=== PATIENT | female | born 1975 | race Hispanic/Latino ===

== ENCOUNTER 2017-06-26 11:26 | Emergency (ER) | payer SELFPAY ==
[2017-06-26 12:07] LABS: #Eosinphils 0.1 thou/uL (0.0-0.7); #Lymphocytes 1.8 thou/uL (1.20-3.40); #Monocytes 0.6 thou/uL (0.11-0.59); #Neutrophils 6.1 thou/uL (1.40-6.50); %Basophils 0.2 % (0.0-1.0); %Eosinophils 0.8 % (0.0-10.0); %Lymphocytes 21.4 % (21.0-51.0); %Monocytes 6.9 % (0.0-10.0); %Neutrophils 70.7 % (42.0-75.0); Hemoglobin 8.6 g/dL (12.0-16.0); Mean Corpuscular HGB CONC 32.6 g/dL (32.0-36.0); Mean Corpuscular Hemoglobin 25.9 pg (27.0-31.0); Mean Corpuscular Volume 79.5 fl (81.0-99.0); Mean Platelet Volume 8.2 fL (7.4-10.4); Platelet Count 271 thou/uL (130-400); RBC Distribution Width 15.1 % (11.5-14.5); Red Blood Cell (RBC) Count 3.31 mill/uL (4.20-5.40); White Blood Cell (WBC) Count 8.6 thou/uL (4.8-10.8)
[2017-06-26 12:18] LABS: BHCG - Serum Negative (NEGATIVE); Pregs Control Background? CLEAR/WHITE (CLR/WHITE); Pregs Control Bar Appear? YES (CONTROL BAR)
[2017-06-26 13:21] LABS: ALT (SGPT) 8 U/L (8-55); AST (SGOT) 12 U/L (5-34); Albumin 3.8 g/dL (3.5-5.0); Alkaline Phosphatase 59 U/L (40-150); Anion Gap 11 mmol/L (10-20); BUN (Urea Nitrogen) 11 mg/dL (7.0-18.7); Bilirubin, Total Less than 0.2 mg/dL (0.2-1.2); Calc. Creatinine Clearance 0 mL/min (70-130); Calcium 8.8 mg/dL (7.8-10.44); Carbon Dioxide 24 mmol/L (22-29); Chloride 105 mmol/L (98-107); Estimated GFR-MDRD Greater than 90; Globulin 3.4 g/dL (2.4-3.5); Glucose 141 mg/dL (70-105); Potassium 3.7 mmol/L (3.5-5.1); Protein, Total 7.2 g/dL (6.0-8.3); Sodium 136 mmol/L (136-145)
[2017-06-28 20:18] LABS: Chlamydia by PCR Not Detected (NotDetected); GC by PCR Not Detected (NotDetected)
== END 2017-06-26 14:45 | disposition home or self-care (01) ==
LOC: ERS 11:26
DX: N93.8 Other specified abnormal uterine and vaginal bleeding (principal); Z79.899 Other long term (current) drug therapy
CPT/HCPCS: 36415; 80053; 84703; 85025; 86850; 86900; 86901; 87480; 87491; 87510; 87591; 87660; 99284

== ENCOUNTER 2017-10-09 15:15 | Inpatient (IN) | payer OTHER ==
[2017-10-16 14:26] VITALS: BMI 32.5
[2017-10-19] MEDS ORDERED: Bupivacaine HCl 0.5%/Epinephrine 1:200,000/PF 30 ml Vial ONE (11:57)
[2017-10-19] MEDS ORDERED: Famotidine 20 MG TAB ONE (12:00)
[2017-10-19] MEDS ORDERED: Gabapentin 300 MG CAP ONE (12:00)
[2017-10-19] MEDS ORDERED: CeleCOXIB 100 MG CAP ONE (12:00)
[2017-10-19] MEDS ORDERED: CEFAZOLIN/Water 2 GM/20 ML SYRINGE ONE (12:00)
[2017-10-19] MEDS ORDERED: Famotidine/PF 20 mg/2ml Vial ONE (12:01)
[2017-10-19] MEDS ORDERED: HYDROmorphone 0.5 MG/0.5 ML SYRINGE ONE (12:04)
[2017-10-19] MEDS ORDERED: Fentanyl 100 MCG/2 ML VIAL ONE ×2 (12:04→14:51)
[2017-10-19] MEDS ORDERED: Benzocaine 20% Spray 60 ML CAN ONE (12:09)
[2017-10-19] MEDS ORDERED: Midazolam HCl 2 mg/2 ml Vial ONE (12:10)
[2017-10-19] MEDS ORDERED: HYDROcodone/Acetaminophen 5/325 mg Tablet PO PRN (14:12)
[2017-10-19] MEDS ORDERED: Ondansetron HCl/PF 4 MG/2 ML Vial IVP PRN (14:12)
[2017-10-19] MEDS ORDERED: Simethicone Chewable 80 MG TAB PO PRN (14:12)
[2017-10-19] MEDS ORDERED: Promethazine HCl 25 MG/ML VIAL IM PRN (14:12)
[2017-10-19] MEDS ORDERED: traMADol HCl 50 MG TAB PO PRN (14:12)
[2017-10-19] MEDS ORDERED: Bisacodyl 10 MG SUPP PR PRN (14:12)
[2017-10-19] MEDS ORDERED: diphenhydrAMINE 25 MG CAP PO PRN (14:12)
[2017-10-19] MEDS ORDERED: Ropivacaine 0.2% 550 ML 750 ML NERVE BLCK SCH (14:30)
[2017-10-19] MEDS ORDERED: Ropivacaine HCl/PF 750 ML in Premix Bag 1 BAG NERVE BLCK SCH (14:45)
[2017-10-19] MEDS ORDERED: Ondansetron HCl/PF 4 MG/2 ML Vial ONE (14:52)
[2017-10-19] MEDS ORDERED: Glycopyrrolate 0.2 MG/ML 5 ML SYRINGE ONE (14:52)
[2017-10-19] MEDS ORDERED: Metoclopramide HCl 10 MG/2 ML VIAL ONE (14:52)
[2017-10-19] MEDS ORDERED: Dexamethasone 20 MG/5 ML VIAL ONE (14:52)
[2017-10-19] MEDS ORDERED: Ketorolac Tromethamine 30 MG/ML VIAL ONE (14:52)
[2017-10-19] MEDS ORDERED: PROPOFOL 200 MG/20 ML VIAL ONE (14:52)
[2017-10-19] MEDS ORDERED: Lidocaine 1% PF 5 ML VIAL ONE (14:52)
[2017-10-19] MEDS ORDERED: ePHEDrine/0.9% NaCl/PF SYRINGE 50 mg/10 ml ONE (14:52)
[2017-10-19] MEDS: Lactated Ringer's 1,000 ML IV SCH ×2 (17:13→23:26)
[2017-10-19] MEDS: Ibuprofen 800 MG TAB PO SCH (23:03)
[2017-10-20 05:27] LABS: #Lymphocytes 1.4 thou/uL (1.20-3.40); #Monocytes 0.7 thou/uL (0.11-0.59); #Neutrophils 8.2 thou/uL (1.40-6.50); %Basophils 0.1 % (0.0-1.0); %Eosinophils 0.1 % (0.0-10.0); %Lymphocytes 13.6 % (21.0-51.0); %Monocytes 6.5 % (0.0-10.0); %Neutrophils 79.6 % (42.0-75.0); Hemoglobin 9.7 g/dL (12.0-16.0); Mean Corpuscular HGB CONC 32.4 g/dL (32.0-36.0); Mean Corpuscular Hemoglobin 24.8 pg (27.0-31.0); Mean Corpuscular Volume 76.5 fL (78.0-98.0); Mean Platelet Volume 9.4 fL (7.4-10.4); Platelet Count 205 thou/uL (130-400); RBC Distribution Width 17.2 % (11.5-14.5); Red Blood Cell (RBC) Count 3.89 mill/uL (4.20-5.40); White Blood Cell (WBC) Count 10.3 thou/uL (4.8-10.8)
[2017-10-20 05:42] LABS: Anion Gap 10 mmol/L (10-20); BUN (Urea Nitrogen) 8 mg/dL (7.0-18.7); Calc. Creatinine Clearance 158 mL/min (70-130); Calcium 8.8 mg/dL (7.8-10.44); Carbon Dioxide 25 mmol/L (22-29); Chloride 106 mmol/L (98-107); Estimated GFR-MDRD Greater than 90; Glucose 117 mg/dL (70-105); Potassium 3.4 mmol/L (3.5-5.1); Sodium 138 mmol/L (136-145)
[2017-10-20] MEDS: Ibuprofen 800 MG TAB PO SCH (06:32)
[2017-10-20] MEDS: Lactated Ringer's 1,000 ML IV SCH ×2 (07:38→08:27)
[2017-10-20 08:44] VITALS: BP 134/72; TEMP 99
--- NOTE | 2017-10-20 09:19 | OP ---
PREOPERATIVE DIAGNOSES: ON-Q pain pump. SURGEON: Dolores Shipman D.O. SECURITY ASSURANCE ANALYST: Anthony Martinez D.O. ESTIMATED BLOOD LOSS: 50 mL. IV FLUIDS: 1650 mL URINE OUTPUT: 500 mL of clear urine. COMPLICATIONS: None. FINDINGS: Normal external genitalia, normal vaginal and cervical epithelium, 9 cm uterus with normal fallopian tubes and ovaries bilaterally and peritoneal identification of the ureters with . INDICATIONS FOR THE PROCEDURE: Ms. Deep Fernandes is a 41-year-old, G6, P5, who presented to clinic wi th heavy abnormal menses. The patient underwent an endometrial biopsy therapy due to continued abnormal bleeding and desired definitive surgical therapy with a hysterectomy. PROCEDURE IN DETAIL: The patient was brought to the operating room. She was placed under general an esthesia. The patient was placed in dorsal lithotomy position and appropriately prepped and draped i n sterile fashion. A single-sided speculum was placed in the vagina. the abdominal portion us ing the scalpel and the Veress needle was inserted into the peritoneal cavity noting a normal pressur e. The 12-mm trocar was then placed at this site. The peritoneal cavity was evaluated, noting the f indings as above. The patient was placed in Trendelenburg position. one on the right of the a bdomen and additional 11-mm port ____ salpingectomy was performed working distally broad ligame nt was undermined and also transected down towards the level of the uterosacral ligament and this was performed bilaterally. The right uterine vessels were further skeletonized and the right uterine ve ssels were coagulated multiple times and transected. completely circumferentially and then the uterus and cervix were delivered vaginally. The vaginal cuff the cuff was then also run . The pelvis was irrigated and cleared of all clot and debris. The abdomen was deflated down no bleeding from the cuff or any of the pedicle site. The ON-Q pump was then suture was remove d and the ON-Q pump was placed in the pelvis under direct visualization. The instruments were remove d. The robot was undocked from the patient. The patient was taken out of Trendelenburg. The abdome n was deflated and the trocars were removed fascia was closed using 0 Vicryl and the skin was c losed using 4-0 Monocryl and Dermabond. The patient was then placed back in supine position and extu bated without difficulty. Counts were correct x2. She will be transferred to the PACU In hemodynami rae stable condition.
--- NOTE | 2017-10-20 09:35 | PRG ---
DATE OF SERVICE: 10/20/2017 HISTORY OF PRESENT ILLNESS: Ms. Fernandes is a 41-year-old female, status post robotic-assisted total lap aroscopic hysterectomy with bilateral salpingectomy, postoperative day #1. SUBJECTIVE: The patient reports minimal pain. She is tolerating an oral diet without any nausea or vomiting. She is passing some flatus and has minimal to no vaginal bleeding. Her pain is controlled with oral medications. OBJECTIVE: VITAL SIGNS: Blood pressure is 134/72, pulse is 80, respiratory rate 20, oxygen saturation 98% on ro om air, temperature is 99 degrees Fahrenheit. CARDIOVASCULAR: Regular rate and rhythm. RESPIRATORY: Unlabored breathing, clear to auscultation bilaterally. ABDOMEN: Soft, mild distention as expected postoperatively. Incisions clean, dry, and intact with D ermabond. Mild tenderness to palpation and bowel sounds present in all 4 quadrants. EXTREMITIES: Negative Homans'. No edema. LABORATORY DATA: White blood cells 10.3, hemoglobin is 9.7, hematocrit is 29.7, platelet is 205, cre atinine is 0.59. Potassium was 3.4. ASSESSMENT: 1. Postoperative day #1, status post robotic-assisted total laparoscopic hysterectomy with bilateral salpingectomy. 2. Anemia. PLAN: The patient is stable for discharge home today. She is meeting all requirements for discharge . I will send home with a prescription for [place] and Motrin and to follow up in 2 weeks postop.
--- NOTE | 2017-10-20 10:33 | SS ---
ADMISSION DIAGNOSES: Postoperative pain management status post robotic assisted total laparoscopic h ysterectomy with bilateral salpingectomy and ON-Q pain placement. DISCHARGE DIAGNOSES: Postoperative pain management status post robotic assisted total laparoscopic h ysterectomy with bilateral salpingectomy and ON-Q pain placement. ADMISSION AND DISCHARGE PHYSICIAN: Dolores Shipman D.O DATE OF ADMISSION: 10/19/2017 DATE OF DISCHARGE: 10/20/2017 BRIEF HOSPITAL COURSE: The patient is a 41-year-old female status post a robotic assisted total lapa roscopic hysterectomy with bilateral salpingectomy and ON-Q pain placement. On postoperative day #1, she is doing well postoperatively and has met all requirements for discharge. The patient is ambula ting, voiding, passing flatus. She is tolerating an oral diet with no nausea or vomiting and her zulema n is controlled with oral medications. Her vitals and labs are stable. She does have a slight anemi a which is chronic due to history of abnormal uterine bleeding. MEDICATIONS: 1. Calcium 5/325, 30 tablets with 0 refills. Instructions; 1 tablet every 6 hours p.r.n. pain. 2. Motrin 800 mg 60 tablets with 0 refills. Instructions; take 1 q.8 hours p.r.n. pain. The patient's prescriptions have already been sent to the pharmacy. FOLLOWUP: Follow up in 2 weeks. DIET: General. ACTIVITY RESTRICTIONS: Pelvic rest and no heavy lifting, pushing or pulling for 6 weeks.
== END 2017-10-20 09:59 | disposition home or self-care (01) | DRG 743 ==
LOC: SURG A 10-19 11:03 → 3SE 10-19 16:50
PROVIDERS: ADMIT Obstetrics & Gynecology; ATTEND Obstetrics & Gynecology
PROC: 0UT9FZZ Resection of Uterus, Via Natural or Artificial Opening With Percutaneous Endoscopic Assistance (ICD-10-PCS; principal; 2017-10-19)
PROC: 0UT7FZZ Resection of Bilateral Fallopian Tubes, Via Natural or Artificial Opening With Percutaneous Endoscopic Assistance (ICD-10-PCS; 2017-10-19)
PROC: 8E0W4CZ Robotic Assisted Procedure of Trunk Region, Percutaneous Endoscopic Approach (ICD-10-PCS; 2017-10-19)
DX: N92.0 Excessive and frequent menstruation with regular cycle (principal); N83.291 Other ovarian cyst, right side; D25.1 Intramural leiomyoma of uterus
CPT/HCPCS: 36415; 80048; 85025; 88307; J0131; J0670; J1100; J1170; J1885; J2001; J2250; J2405; J2704; J2765; J2795; J3010; S0028

== ENCOUNTER 2017-10-16 14:02 | Outpatient (CLI) | payer OTHER ==
[2017-10-16 15:03] LABS: Hemoglobin 10.2 g/dL (12.0-16.0); Mean Corpuscular HGB CONC 32.5 g/dL (32.0-36.0); Mean Corpuscular Hemoglobin 24.6 pg (27.0-31.0); Mean Corpuscular Volume 75.6 fL (78.0-98.0); Mean Platelet Volume 9.5 fL (7.4-10.4); Platelet Count 215 thou/uL (130-400); RBC Distribution Width 16.6 % (11.5-14.5); Red Blood Cell (RBC) Count 4.15 mill/uL (4.20-5.40); White Blood Cell (WBC) Count 6.9 thou/uL (4.8-10.8)
[2017-10-16 15:29] LABS: BHCG - Serum Negative (NEGATIVE); Pregs Control Background? CLEAR/WHITE (CLR/WHITE); Pregs Control Bar Appear? YES (CONTROL BAR)
[2017-10-16 15:31] LABS: Anion Gap 12 mmol/L (10-20); BUN (Urea Nitrogen) 14 mg/dL (7.0-18.7); Calc. Creatinine Clearance 0 mL/min (70-130); Calcium 9.7 mg/dL (7.8-10.44); Carbon Dioxide 26 mmol/L (22-29); Chloride 103 mmol/L (98-107); Estimated GFR-MDRD 86; Glucose 174 mg/dL (70-105); Potassium 3.4 mmol/L (3.5-5.1); Sodium 138 mmol/L (136-145)
== END 2017-10-16 14:03 | disposition home or self-care (01) ==
LOC: LABBT 14:02
PROVIDERS: ATTEND Obstetrics & Gynecology
DX: Z01.812 Encounter for preprocedural laboratory examination (principal); N92.0 Excessive and frequent menstruation with regular cycle
CPT/HCPCS: 80048; 84703; 85027; 93005; 93010

== ENCOUNTER 2020-05-23 07:32 | Day surgery (SDC) | payer OTHER ==
[2020-05-21 12:30] VITALS: BMI 35.2
[2020-05-23] MEDS ORDERED: Scopolamine 1.5 mg/72 hour Patch ONE (08:11)
[2020-05-23] MEDS ORDERED: Midazolam HCl 2 mg/2 ml Vial ONE (08:11)
[2020-05-23] MEDS ORDERED: XYLOCAINE 2%-EPI 1:100,000 20 ML VIAL ONE (08:39)
[2020-05-23] MEDS ORDERED: Meperidine HCl/PF 25 MG/ML VIAL ONE (08:54)
[2020-05-23] MEDS ORDERED: Famotidine/PF 20 mg/2ml Vial ONE (08:54)
[2020-05-23] MEDS ORDERED: Fentanyl 100 MCG/2 ML VIAL ONE (08:54)
[2020-05-23] MEDS ORDERED: Ondansetron PF 4 MG/2 ML Vial ONE (09:18)
[2020-05-23] MEDS ORDERED: Ketorolac Tromethamine 30 MG/ML VIAL ONE (09:18)
[2020-05-23] MEDS ORDERED: Lidocaine 1% PF 5 ML VIAL ONE (09:18)
[2020-05-23] MEDS ORDERED: PROPOFOL 200 MG/20 ML VIAL ONE (09:18)
[2020-05-23] MEDS ORDERED: Dexamethasone 20 MG/5 ML VIAL ONE (09:18)
[2020-05-23] MEDS ORDERED: Metoclopramide HCl 10 MG/2 ML VIAL ONE (09:18)
[2020-05-23] MEDS ORDERED: Hydrocodone-Acetamin 15 ML UDCUP ONE (11:57)
--- NOTE | 2020-05-24 14:47 | OP ---
DATE OF PROCEDURE: 05/23/2020 PREOPERATIVE DIAGNOSES: 1. Right thyroid mass. 2. Dysphagia. POSTOPERATIVE DIAGNOSES: 1. Right thyroid mass. 2. Dysphagia. PROCEDURES PERFORMED: 1. Right thyroid lobectomy. 2. Intraoperative laryngeal nerve monitor. ESTIMATED BLOOD LOSS: 10 mL. COMPLICATIONS: None. ANESTHESIA: GETA. DESCRIPTION OF PROCEDURE: The patient was taken to the operating room, placed supine on the table. General endotracheal anesthesia was obtained by the anesthesia staff. The laryngeal endotracheal tube was then placed and the laryngeal electrodes were confirmed under indirect visualization using the GlideScope and the vocal cords were confirmed to be on the laryngeal electrodes bilaterally. The tube was secured to the midline of the upper lip. Patient was prepped and draped in standard surgical fashion. 8 mL of 1% lidocaine with 1:100,000 epinephrine was injected in the jessi-shaped area overlying the thyroid gland. An incision was made in the skin approximately 2 cm above the sternal notch and was carried through skin, subcutaneous tissue, and the platysmal layer. Subplatysmal flaps were elevated superiorly to the level of the thyroid notch and inferiorly to the clavicles. Following this, the strap muscles were identified and were in the midline and the large thyroid mass approximately 5 to 6 cm was immediately encountered immediately adjacent to the thyroid capsule. Dissection was then carried laterally. The middle thyroid vein was suture ligated and then the thyroid gland was displaced inferiorly. The superior thyroid vascular pedicle was suture ligated immediately adjacent to the thyroid gland. The gland was then allowed to be displaced medially through the incision and the right recurrent laryngeal nerve was identified coursing approximately 15 to 30 degrees from the tracheoesophageal groove. The nerve was protected and identified as the gland was freed from this area. Inferior thyroid artery was identified and was suture ligated. The inferior parathyroids were identified and were protected as well as the superior parathyroid. Following this, the attachments to the trachea were suture ligated and the right thyroid lobe along with the isthmus of the thyroid was then suture ligated and removed from the body. Frozen section analysis suggested follicular adenoma and the wound was irrigated. Hemostasis was obtained. A small piece of Surgicel was placed over the right recurrent laryngeal nerve and a drain was placed. The strap muscles were closed using a 3-0 Monocryl stitch and the platysmal layer was closed using 3-0 Monocryl stitch. A subcuticular stitch of 4-0 Monocryl was placed and Dermabond was placed in the skin. The drain was noted to be working at the end of the procedure. Intraoperative laryngeal nerve monitor, which was turned on at the beginning of the procedure and was monitored throughout the procedure, was then turned off and the patient was extubated without complications. Job ID: [id number]
== END 2020-05-23 13:30 | disposition home or self-care (01) ==
LOC: SDC 07:32
PROVIDERS: ATTEND Otolaryngology Plastic Surgery within the Head & Neck
PROC: 0GTH0ZZ Resection of Right Thyroid Gland Lobe, Open Approach (ICD-10-PCS; principal; 2020-05-23)
DX: E07.89 Other specified disorders of thyroid (principal); E11.9 Type 2 diabetes mellitus without complications; I10 Essential (primary) hypertension; Z79.4 Long term (current) use of insulin; Z79.899 Other long term (current) drug therapy
CPT/HCPCS: 36416; 88307; 88323; 88331; J1100; J1885; J2175; J2250; J2405; J2704; J2765; J3010; S0028

== ENCOUNTER 2020-06-15 14:31 | Outpatient (CLI) | payer OTHER ==
[2020-05-19 06:18] LABS: SARS-CoV-2 PCR by NAA Not Detected (NotDetected)
--- NOTE | 2020-05-21 17:10 | EKG ---
Test Reason : Blood Pressure : / mmHG Vent. Rate : 086 BPM Atrial Rate : 086 BPM P-R Int : 152 ms QRS Dur : 088 ms QT Int : 378 ms P-R-T Axes : 036 053 064 degrees QTc Int : 452 ms Normal sinus rhythm Normal ECG No previous ECGs available Confirmed by DR. Alli HOLGUIN ([id number]) on 05/21/2020 5:10:20 PM Referred By: [place] Confirmed By:DR. Alli HOLGUIN
[2020-06-15 15:39] LABS: Anion Gap 13 mmol/L (10-20); BUN (Urea Nitrogen) 14 mg/dL (7.0-18.7); Calc. Creatinine Clearance 0 mL/min (70-130); Calcium 9.1 mg/dL (7.8-10.44); Carbon Dioxide 26 mmol/L (22-29); Chloride 104 mmol/L (98-107); Glucose 136 mg/dL (70-105); Potassium 3.9 mmol/L (3.5-5.1); Sodium 139 mmol/L (136-145)
[2020-06-16 02:33] LABS: SARS-CoV-2 PCR by NAA Not Detected (NotDetected)
== END 2020-06-15 14:32 | disposition home or self-care (01) ==
LOC: LABBT 14:31
PROVIDERS: ATTEND Otolaryngology Plastic Surgery within the Head & Neck
DX: Z01.818 Encounter for other preprocedural examination (principal); Z20.822 Contact with and (suspected) exposure to COVID-19
CPT/HCPCS: 80048; 85014; 87635; 93005; 93010; U0003; U0005

== ENCOUNTER 2020-06-20 07:13 | Observation (INO) | payer OTHER ==
[2020-06-19 11:15] VITALS: BMI 35.2
[2020-06-20] MEDS ORDERED: Lidocaine 1% w/Epinephrine 1:100K 20 ML VIAL ONE (08:09)
[2020-06-20] MEDS ORDERED: Dexmedetomidine 200 MCG/2 ML VIAL ONE (08:19)
[2020-06-20] MEDS ORDERED: Fentanyl 100 MCG/2 ML VIAL ONE ×5 (08:19→15:47)
[2020-06-20] MEDS ORDERED: Calcium Chloride 1 GM/10 ML Abboject SYRINGE ONE (09:51)
[2020-06-20] MEDS ORDERED: Succinylcholine 200 MG/10 ml SYRINGE FS ONE (09:51)
[2020-06-20] MEDS ORDERED: Lidocaine 1% PF 5 ML VIAL ONE (09:51)
[2020-06-20] MEDS ORDERED: Dexamethasone 20 MG/5 ML VIAL ONE (09:51)
[2020-06-20] MEDS ORDERED: PROPOFOL 200 MG/20 ML VIAL ONE (09:51)
[2020-06-20] MEDS ORDERED: Labetalol HCl 100 MG/20 ML VIAL ONE (09:51)
[2020-06-20] MEDS ORDERED: Ondansetron PF 4 MG/2 ML Vial ONE ×2 (09:51→17:24)
[2020-06-20] MEDS ORDERED: Ondansetron HCl/PF 4 MG/2 ML Vial IVP PRN (11:20)
[2020-06-20] MEDS ORDERED: Promethazine HCl 25 MG/ML VIAL IM PRN (11:20)
[2020-06-20] MEDS ORDERED: Promethazine HCl 25 MG/ML VIAL SLOW IVP PRN (11:20)
[2020-06-20] MEDS ORDERED: Bacitracin 1 PK TOP PRN (11:46)
[2020-06-20] MEDS ORDERED: Hydrocodone-Acetamin 15 ML UDCUP PO PRN ×2 (11:48)
[2020-06-20] MEDS ORDERED: Ondansetron PF 4 MG/2 ML Vial IVP PRN (11:49)
[2020-06-20] MEDS ORDERED: Morphine 2 MG/ML VIAL SLOW IVP PRN (11:49)
--- NOTE | 2020-06-20 14:50 | OP ---
DATE OF PROCEDURE: 06/20/2020 PREOPERATIVE DIAGNOSES: 1. Thyroid papillary carcinoma. 2. Dysphagia. POSTOPERATIVE DIAGNOSES: 1. Thyroid papillary carcinoma. 2. Dysphagia. PROCEDURES PERFORMED: 1. Left thyroidectomy for completion thyroidectomy. 2. Intraoperative laryngeal nerve monitor. ESTIMATED BLOOD LOSS: 10 mL. COMPLICATIONS: None. ANESTHESIA: GETA. DESCRIPTION OF PROCEDURE: The patient was taken to operating room, placed supine on the table. General endotracheal anesthesia was obtained by the Anesthesia Staff. The laryngeal nerve monitoring tube was placed between the vocal cords and the laryngeal electrodes were visualized under direct visualization and were confirmed to be between the vocal cords bilaterally. Following this, the patient prepped and draped in standard surgical fashion. 8 mL of 1% lidocaine with 1:100,000 epinephrine was injected into the skin and subcutaneous tissue around the previous incision and overlying the thyroid gland. Following this, the incision was made through the previous incision and then was carried over on the left side approximately 2 to 3 cm. The incision was carried through skin, subcutaneous tissue, and the platysmal layer. Following this, the defect in the strap muscles were identified and were in the midline. Significant fibrotic tissue was present. The left thyroid capsule was identified and dissection was performed adjacent to the thyroid capsule. The superior thyroid vascular pedicle was identified and was suture ligated immediately adjacent to the thyroid capsule. Following this, the left recurrent laryngeal nerve was identified and the inferior thyroid artery on this left side was suture ligated. The parathyroid glands were identified and were preserved. The gland was then freed from its attachments to Garrido's ligament and then were removed completing the total thyroidectomy. Following this, the wound was irrigated. Hemostasis was controlled and drain was placed and the strap muscles were closed using Monocryl stitches and the platysmal layer was closed using Monocryl stitches as well as the subcuticular layer. Dermabond was placed on the skin. The patient tolerated the procedure well. Job ID: [id number]
[2020-06-20] MEDS ORDERED: Hydrocodone-Acetamin 15 ML UDCUP ONE (15:54)
[2020-06-20] MEDS: Sodium Chloride 0.45% 1,000 ML IV SCH ×2 (17:15→22:17)
[2020-06-20] MEDS ORDERED: CEFAZOLIN 1 GM VIAL ONE (17:19)
[2020-06-20] MEDS: CEFAZOLIN 1 GM in Sodium Chloride 0.9% 100 ML IVPB SCH ×2 (17:30→22:12)
[2020-06-21] MEDS: Sodium Chloride 0.45% 1,000 ML IV SCH (03:15)
[2020-06-21] MEDS: CEFAZOLIN 1 GM in Sodium Chloride 0.9% 100 ML IVPB SCH (06:11)
[2020-06-21 07:47] VITALS: BP 127/80; TEMP 98.1
[2020-06-21] MEDS ORDERED: Acetaminophen 500 MG TAB PO PRN (10:15)
[2020-06-21] MEDS ORDERED: FLU VACC QS2020-21(6MOS UP)/PF 60 MCG/0.5 ML SYRINGE IM ONE (21:00)
== END 2020-06-21 11:20 | disposition home or self-care (01) ==
LOC: SDC 07:13 → SURG B 11:54
PROVIDERS: ADMIT Otolaryngology Plastic Surgery within the Head & Neck; ATTEND Otolaryngology Plastic Surgery within the Head & Neck
PROC: 0GTK0ZZ Resection of Thyroid Gland, Open Approach (ICD-10-PCS; principal; 2020-06-20)
DX: C73 Malignant neoplasm of thyroid gland (principal); E04.9 Nontoxic goiter, unspecified; E89.0 Postprocedural hypothyroidism; E11.9 Type 2 diabetes mellitus without complications; I10 Essential (primary) hypertension; Z79.4 Long term (current) use of insulin; Z79.899 Other long term (current) drug therapy
CPT/HCPCS: 36415; 36416; 82310; 83970; 85014; 88307; 96365; 96366; 96375; G0378; J0690; J1100; J2270; J2405; J2704; J3010; J3490

== ENCOUNTER 2020-08-29 12:32 | Outpatient (CLI) | payer OTHER | END 2020-08-29 12:33 | disposition home or self-care (01) | LOC: NM 12:32 | PROVIDERS: ATTEND Internal Medicine Endocrinology, Diabetes & Metabolism | DX: C73 Malignant neoplasm of thyroid gland (principal) | CPT/HCPCS: 79005; A9517 ==

== ENCOUNTER 2020-09-10 12:52 | Outpatient (CLI) | payer OTHER | END 2020-09-10 12:53 | disposition home or self-care (01) | LOC: NM 12:52 | PROVIDERS: ATTEND Internal Medicine Endocrinology, Diabetes & Metabolism | DX: C73 Malignant neoplasm of thyroid gland (principal) | CPT/HCPCS: 78018 ==

== ENCOUNTER 2021-05-16 14:31 | Outpatient (CLI) | payer OTHER | END 2021-05-16 14:32 | disposition home or self-care (01) | LOC: BICCT 14:31 | PROVIDERS: ATTEND Family Medicine | DX: R22.1 Localized swelling, mass and lump, neck (principal); R59.0 Localized enlarged lymph nodes; E89.0 Postprocedural hypothyroidism | CPT/HCPCS: 70491 ==

== ENCOUNTER 2021-05-29 15:36 | Outpatient (CLI) | payer OTHER | END 2021-05-29 15:37 | disposition home or self-care (01) | LOC: BICMAMMO 15:36 | PROVIDERS: ATTEND Family Medicine | DX: Z12.31 Encounter for screening mammogram for malignant neoplasm of breast (principal); Z85.850 Personal history of malignant neoplasm of thyroid | CPT/HCPCS: 77063; 77067 ==

== ENCOUNTER 2021-05-31 08:58 | Outpatient (CLI) | payer OTHER ==
[2021-05-31 10:31] LABS: Anion Gap 13 mmol/L (10-20); BUN (Urea Nitrogen) 9 mg/dL (7.0-18.7); Calc. Creatinine Clearance 0 mL/min (70-130); Carbon Dioxide 24 mmol/L (22-29); Chloride 103 mmol/L (98-107); Glucose 162 mg/dL (70-105); Sodium 136 mmol/L (136-145)
[2021-05-31 18:45] LABS: SARS-CoV-2 PCR by NAA Not Detected (NotDetected)
== END 2021-05-31 08:59 | disposition home or self-care (01) ==
LOC: LABBT 08:58
PROVIDERS: ATTEND Otolaryngology Plastic Surgery within the Head & Neck
DX: Z01.818 Encounter for other preprocedural examination (principal); R22.1 Localized swelling, mass and lump, neck; Q89.2 Congenital malformations of other endocrine glands; Z90.89 Acquired absence of other organs; Z20.822 Contact with and (suspected) exposure to COVID-19
CPT/HCPCS: 80048; 85014; 93005; 93010; U0003; U0005

== ENCOUNTER 2021-05-31 14:44 | Outpatient (CLI) | payer OTHER | END 2021-05-31 14:45 | disposition home or self-care (01) | LOC: BICMAMMO 14:44 | PROVIDERS: ATTEND Family Medicine | DX: R92.0 Mammographic microcalcification found on diagnostic imaging of breast (principal) | CPT/HCPCS: G0279 ==

== ENCOUNTER 2021-06-05 09:38 | Day surgery (SDC) | payer OTHER ==
[2021-05-31 10:25] VITALS: BMI 34.0
[2021-06-05] MEDS ORDERED: Xylocaine 1% w/ Epi 1:100K 10 ML VIAL ONE (11:00)
[2021-06-05] MEDS ORDERED: Fentanyl 250 MCG/5 ML VIAL ONE (12:36)
[2021-06-05] MEDS ORDERED: ePHEDrine 50 MG/ML VIAL ONE (12:39)
[2021-06-05] MEDS ORDERED: Dexamethasone 20 MG/5 ML VIAL ONE (12:39)
[2021-06-05] MEDS ORDERED: Rocuronium Bromide 10 MG/ML (10ML VIAL) ONE (12:39)
[2021-06-05] MEDS ORDERED: Ondansetron PF 4 MG/2 ML Vial ONE (12:39)
[2021-06-05] MEDS ORDERED: Glycopyrrolate 0.2 MG/ML 5 ML SYRINGE ONE (12:39)
[2021-06-05] MEDS ORDERED: PROPOFOL 200 MG/20 ML VIAL ONE (12:39)
[2021-06-05] MEDS ORDERED: PHENYLEPHRINE-NS 100 MCG/ML 10 ML SYRINGE ONE (12:39)
== END 2021-06-05 15:05 | disposition home or self-care (01) ==
LOC: SDC 09:38
PROVIDERS: ATTEND Otolaryngology Plastic Surgery within the Head & Neck
PROC: 0WB60ZX Excision of Neck, Open Approach, Diagnostic (ICD-10-PCS; principal; 2021-06-05)
DX: Q89.2 Congenital malformations of other endocrine glands (principal); E89.0 Postprocedural hypothyroidism; E11.9 Type 2 diabetes mellitus without complications; I10 Essential (primary) hypertension; E66.9 Obesity, unspecified; Z68.34 Body mass index [BMI] 34.0-34.9, adult; Z79.4 Long term (current) use of insulin; Z79.84 Long term (current) use of oral hypoglycemic drugs; Z79.899 Other long term (current) drug therapy
CPT/HCPCS: 36416; 88305; C1889; J1100; J2405; J2704; J3010; J3490

== ENCOUNTER → 2021-08-01 | Day surgery (SDC) | payer OTHER | END | disposition home or self-care (01) | LOC: MAMMO 07:00 | PROVIDERS: ATTEND Family Medicine | PROC: 0H9U3ZX Drainage of Left Breast, Percutaneous Approach, Diagnostic (ICD-10-PCS; principal; 2021-08-01) | DX: N63.25 Unspecified lump in the left breast, overlapping quadrants (principal); R92.0 Mammographic microcalcification found on diagnostic imaging of breast | CPT/HCPCS: 19081; 76098; 88305 ==

== ENCOUNTER 2022-04-10 07:25 | Emergency (ER) | payer OTHER ==
[2022-04-10] MEDS ORDERED: Morphine 4 MG/ML VIAL ONE (07:42)
[2022-04-10] MEDS ORDERED: Ondansetron PF 4 MG/2 ML Vial ONE (07:42)
== END 2022-04-10 09:16 | disposition home or self-care (01) ==
LOC: ERS 07:25
DX: S16.1XXA Strain of muscle, fascia and tendon at neck level, initial encounter (principal); S80.02XA Contusion of left knee, initial encounter; I10 Essential (primary) hypertension; E11.9 Type 2 diabetes mellitus without complications; V89.2XXA Person injured in unspecified motor-vehicle accident, traffic, initial encounter
CPT/HCPCS: 70450; 71045; 72125; 96374; 96375; J2270; J2405